=== PATIENT | male | born 1980 | race Caucasian/White ===

== ENCOUNTER 2021-08-04 09:03 | Emergency (ER) | payer OTHER ==
[~2021-08-04] VITALS: Ht 177.8 cm; Wt 78.8 kg
== END 2021-08-04 10:44 | disposition home or self-care (01) ==
LOC: ED 09:03
DX: K92.2 Gastrointestinal hemorrhage, unspecified (principal); K29.00 Acute gastritis without bleeding
CPT/HCPCS: 36415; 80053; 85025; 96374; 99283-25; J7030

== ENCOUNTER 2024-03-04 19:20 | Emergency (ER) | payer OTHER ==
[~2024-03-04] VITALS: Ht 177.8 cm; Wt 82.0 kg
[2024-03-04 20:01] LABS: BASOPHILS 0.7 % (0-2); EOSINOPHILS 1.4 % (0-6); HEMATOCRIT 30.1 % (35.0-50.0); HEMOGLOBIN 9.7 g/dL (12.0-18.0); LYMPHOCYTES 17.3 % (24-44); MCHC 32.4 g/dl (30-36); MCV 86.4 fl (81-99); MONOCYTES 10.2 % (0-12); NEUTROPHILS 70.4 % (39-80); PLATELET COUNT 412 K/uL (140-440); RBC 3.48 M/ul (4.3-5.7)
[2024-03-04 20:15] LABS: ALBUMIN 2.6 g/dL (3.4-5.0); ALBUMIN/GLOBULIN RATIO 0.51 (1.1-2.4); ANION GAP 12.2 (7-21); BILIRUBIN, TOTAL 0.5 ng/dL (0.2-1.0); BUN/CREATININE RATIO 15.78 (6.0-28.6); CREATININE, SERUM 0.95 mg/dL (0.70-1.30); POTASSIUM 4.2 mmol/L (3.5-5.1); PROTEIN, TOTAL 7.7 g/dL (6.4-8.2)
[2024-03-04] MEDS ORDERED: LACTATED RINGER'S 1,000 ML IV ONE (20:15)
[2024-03-04 20:30] LABS: ACETAMINOPHEN 0 ug/mL (10-30); SALICYLATE 0.6 mg/dL (2.8-20.0)
[2024-03-04] MEDS ORDERED: HYDROCODONE BIT/ACETAMINOPHEN 5/325 MG 1 TAB HOME.PACK PO ONE (21:00)
[2024-03-04] MEDS ORDERED: HYDROCODON-ACE1 EA10 PO (21:05)
[2024-03-04 21:54] LABS: BILIRUBIN, URINE NEGATIVE (negative); BLOOD/HGB, URINE NEGATIVE (Negative); KETONE, URINE NEGATIVE (Negative); LEUK ESTERASE, URINE NEGATIVE (negative); NITRITE, URINE NEGATIVE (negative)
[2024-03-04 22:05] VITALS: BP 129/82
[2024-03-04 22:08] LABS: AMPHETAMINES, URINE POSITIVE (NEGATIVE); BARBITURATES, URINE NEGATIVE (NEGATIVE); BENZODIAZEPINE, URINE NEGATIVE (NEGATIVE); BUPRENORPHINE, URINE NEGATIVE (NEGATIVE); CANNABINOID, URINE NEGATIVE (NEGATIVE); COCAINE, URINE NEGATIVE (NEGATIVE); ECSTASY, URINE NEGATIVE (NEGATIVE); FENTANYL, URINE NEGATIVE (NEGATIVE); METHADONE, URINE NEGATIVE (NEGATIVE); OPIATES, URINE NEGATIVE (NEGATIVE); OXYCODONE, URINE NEGATIVE (NEGATIVE); PHENCYCLIDINE, URINE NEGATIVE (NEGATIVE)
== END 2024-03-04 22:05 | disposition home or self-care (01) ==
LOC: ED 19:20
PROVIDERS: Internal Medicine
DX: R22.41 Localized swelling, mass and lump, right lower limb (principal); I10 Essential (primary) hypertension
CPT/HCPCS: 36415; 73702; 73706; 80053; 80307; 81003; 85025; 85379; 93971; 99284-25; A9270; G0480; J7121; Q9967

== ENCOUNTER 2024-05-20 13:05 | Emergency (ER) | payer OTHER ==
[~2024-05-20] VITALS: Ht 177.8 cm; Wt 77.3 kg
[~2024-05-20 13:05] MED LIST: HYDROCODON-ACE1 EA10 PO
[2024-05-20] MEDS ORDERED: HYDROmorphone HCL 1 MG/ML SYR IM ONE (16:00)
[2024-05-20 16:28] LABS: ANION GAP 16.3 (7-21); BUN/CREATININE RATIO 20.68 (6.0-28.6); CALCIUM 8.8 mg/dL (8.5-10.1); CREATININE, SERUM 1.16 mg/dL (0.70-1.30); POTASSIUM 4.3 mmol/L (3.5-5.1)
[2024-05-20] MEDS ORDERED: ACETAMINOPHEN 500 MG TAB PO ONE (16:30)
[2024-05-20] MEDS ORDERED: HYDROCODON-ACE1 EA10 PO (17:48)
[2024-05-20 18:10] VITALS: BP 127/64
== END 2024-05-20 17:54 | disposition home or self-care (01) ==
LOC: ED 13:05
PROVIDERS: Emergency Medicine
DX: C76.51 Malignant neoplasm of right lower limb (principal); I10 Essential (primary) hypertension; Z79.899 Other long term (current) drug therapy
CPT/HCPCS: 36415; 80048; 82553; 96372; 99283-25; A9270; J1171

== ENCOUNTER 2024-08-04 19:54 | Emergency (ER) | payer OTHER ==
[~2024-08-04] VITALS: Ht 177.8 cm; Wt 83.5 kg
[2024-08-04] MEDS ORDERED: ACETAMINOPHEN 500 MG TAB ONE (20:14)
[2024-08-04] MEDS ORDERED: SODIUM CHLORIDE 0.9% 1,000 ML IV ONE (20:15)
[2024-08-04] MEDS ORDERED: DAPTOmycin 500 MG/10 ML VIAL IV ONE (20:15)
[2024-08-04] MEDS ORDERED: ACETAMINOPHEN 500 MG TAB PO ONE (20:15)
[2024-08-04] MEDS ORDERED: IBUPROFEN 800 MG TAB PO ONE (20:15)
[2024-08-04 20:22] LABS: BASOPHILS 0.5 % (0-2); EOSINOPHILS 0.2 % (0-6); HEMATOCRIT 17.8 % (35.0-50.0); LYMPHOCYTES 17.8 % (24-44); MCHC 32.2 g/dl (30-36); MCV 77.8 fl (81-99); MONOCYTES 13.3 % (0-12); NEUTROPHILS 68.2 % (39-80); PLATELET COUNT 558 K/uL (140-440); RBC 2.29 M/ul (4.3-5.7); RDW 20.7 (10.5-15.0)
[2024-08-04 20:24] LABS: HEMOGLOBIN 5.7 g/dL (12.0-18.0); PARTIAL THROMBOPLASTIN TIME 39.6 Sec (22.9-41.3)
[2024-08-04 20:25] LABS: INR 1.18 (0.80-1.30); PROTIME 14.9 Sec (11.2-14.2)
[2024-08-04 20:26] LABS: BILIRUBIN, URINE NEGATIVE (negative); BLOOD/HGB, URINE NEGATIVE (Negative); KETONE, URINE NEGATIVE (Negative); LEUK ESTERASE, URINE NEGATIVE (negative); NITRITE, URINE NEGATIVE (negative); PH, URINE 5.5 (5-7)
[2024-08-04 20:29] LABS: ALBUMIN 1.8 g/dL (3.4-5.0); ALBUMIN/GLOBULIN RATIO 0.38 (1.1-2.4); BILIRUBIN, TOTAL 0.4 mg/dL (0.2-1.0); BUN/CREATININE RATIO 11.82 (6.0-28.6); CREATININE, SERUM 0.93 mg/dL (0.70-1.30); PROTEIN, TOTAL 6.6 g/dL (6.4-8.2)
[2024-08-04 20:31] LABS: EPITHELIAL CELLS, URINE SQUAMOUS 1+ /lpf (0-1+)
[2024-08-04 20:32] LABS: BACTERIA, URINE 1+ /hpf (negative); CASTS, URINE NONE SEEN \\lpf; COLLECTION TYPE, URINE CLEAN CATCH; CRYSTALS, URINE NONE SEEN (0-1+); RED BLOOD CELLS, URINE 0-1 /hpf (0-5); REFLEX CULTURE, URINE No (No); WHITE BLOOD CELLS, URINE 0-1 /HPF (0-5)
[2024-08-04 20:35] LABS: BANDS, MANUAL DIFF 1; LACTIC ACID, BLOOD 1.9 mmol/L (0.4-2.0); LYMPHOCYTES, MANUAL DIFF 25; MONOCYTES, MANUAL DIFF 6; NEUTROPHILS, MANUAL DIFF 68
[2024-08-04 20:51] LABS: ABO A; RH POSITIVE
[2024-08-04 20:58] LABS: AMPHETAMINES, URINE POSITIVE (NEGATIVE); BARBITURATES, URINE NEGATIVE (NEGATIVE); BENZODIAZEPINE, URINE NEGATIVE (NEGATIVE); BUPRENORPHINE, URINE NEGATIVE (NEGATIVE); CANNABINOID, URINE NEGATIVE (NEGATIVE); COCAINE, URINE NEGATIVE (NEGATIVE); ECSTASY, URINE NEGATIVE (NEGATIVE); FENTANYL, URINE NEGATIVE (NEGATIVE); METHADONE, URINE NEGATIVE (NEGATIVE); OPIATES, URINE NEGATIVE (NEGATIVE); OXYCODONE, URINE NEGATIVE (NEGATIVE); PHENCYCLIDINE, URINE NEGATIVE (NEGATIVE)
[2024-08-04 20:59] LABS: INFLUENZA B NAA NEGATIVE (NEGATIVE); RESPIRATORY SYNCYTIAL VIR NAA NEGATIVE (NEGATIVE)
[2024-08-04 21:28] LABS: ABO A; ANTIBODY SCREEN NEGATIVE; IS CROSSMATCH COMPATIBLE; RH POSITIVE
[2024-08-04] MEDS ORDERED: methylPREDNISolone SOD SUCC 125 MG/2 ML VIAL IV ONE (21:30)
[2024-08-04] MEDS ORDERED: HYDROmorphone HCL 1 MG/ML SYR IV PRN (21:30)
[2024-08-04] MEDS ORDERED: CIPROFLOXACIN 0.3% 5 ML HOME.PACK OPTH ONE (22:15)
[2024-08-04] MEDS ORDERED: PERCOCET 5-3251 EACH PO (22:25)
[2024-08-04] MEDS ORDERED: AMOX TR-K CLV1 EAC1 PO (22:25)
[2024-08-04] MEDS ORDERED: FERROUS SULFAT325 M2 PO (22:25)
[2024-08-04] MEDS ORDERED: VITAMIN C500 M1 PO (22:25)
[2024-08-05] MEDS ORDERED: diphenhydrAMINE HCL 50 MG/ML VIAL IV ONE ×2 (00:45→02:00)
[2024-08-05] MEDS ORDERED: methylPREDNISolone 4 MG HOME.PACK PO ONE (01:00)
[2024-08-05 03:40] LABS: BASOPHILS 0.6 % (0-2); EOSINOPHILS 0.2 % (0-6); HEMATOCRIT 21.6 % (35.0-50.0); HEMOGLOBIN 6.8 g/dL (12.0-18.0); MCH 25.3 (27-36); MCHC 31.6 g/dl (30-36); MCV 79.9 fl (81-99); MONOCYTES 5.3 % (0-12); NEUTROPHILS 84.9 % (39-80); PLATELET COUNT 453 K/uL (140-440); RDW 20.8 (10.5-15.0)
[2024-08-05 03:51] LABS: INR 1.29 (0.80-1.30)
[2024-08-05 03:53] LABS: SMEAR REVIEW BLOOD SEE COMMENTS
[2024-08-05 08:10] VITALS: BP 106/61
--- NOTE | 2024-08-05 17:41 | EKG ---
[facility] [address] [facility] [place], [place] [address] Signed Sinus tachycardia Otherwise normal ECG No previous ECGs available Confirmed by Evelyn Ramachandran MD ([id number]) on 08/05/2024 5:41:24 PM Electronically Signed By: EVEYLN RAMACHANDRAN MD 08/05/241740 PATIENT NAME: DAREN COLIN Electrocardiogram DATE OF : 78 PHYSICIAN: EVELYN RAMACHANDRAN MD REPORT #: [id number] REPORT IS CONFIDENTIAL AND NOT TO BE RELEASED WITHOUT AUTHORIZATION
--- NOTE | 2024-08-05 17:44 | EKG ---
[facility] [address] [facility] [place] [address] Signed Normal sinus rhythm Prolonged QT Abnormal ECG When compared with ECG of 04-AUG-2024 20:05, (Unconfirmed) Vent. rate has decreased BY 64 BPM Confirmed by Evelyn Ramachandran MD ([id number]) on 08/05/2024 5:43:50 PM Electronically Signed By: EVELYN RAMACHANDRAN MD 08/05/24 1744 PATIENT NAME: DAREN COLIN Electrocardiogram DATE OF : 78 PHYSICIAN: EVELYN RAMACHANDRAN MD REPORT #: [id number] REPORT IS CONFIDENTIAL AND NOT TO BE RELEASED WITHOUT AUTHORIZATION
== END 2024-08-05 08:10 | disposition home or self-care (01) ==
LOC: ED 19:54
PROVIDERS: Family Medicine
DX: L04.1 Acute lymphadenitis of trunk (principal); D63.8 Anemia in other chronic diseases classified elsewhere; C49.21 Malignant neoplasm of connective and soft tissue of right lower limb, including hip; N39.0 Urinary tract infection, site not specified; I10 Essential (primary) hypertension; Z79.899 Other long term (current) drug therapy
CPT/HCPCS: 36415; 36430; 51702; 71045; 74177; 80053; 80307; 81001; 83605; 84443; 85007; 85025; 85045; 85060; 85610; 85730; 86850; 86900; 86901; 86922; 87040; 87502; 93005; 93010; 99284-25; A9270; J0878; J1200; J2919; J7030; P9016; Q9967; U0002

== ENCOUNTER 2024-09-16 14:16 | Emergency (ER) | payer OTHER ==
[~2024-09-16] VITALS: Ht 177.8 cm; Wt 79.8 kg
[~2024-09-16 14:16] MED LIST changes: +AMOX TR-K CLV1 EAC1 PO; +FERROUS SULFAT325 M2 PO; +PERCOCET 5-3251 EACH PO; +VITAMIN C500 M1 PO
[2024-09-16 15:55] LABS: BASOPHILS 0.8 % (0-2); EOSINOPHILS 1.6 % (0-6); HEMOGLOBIN 8.1 g/dL (12.0-18.0); LYMPHOCYTES 15.5 % (24-44); MCHC 32.3 g/dl (30-36); MCV 80.5 fl (81-99); MONOCYTES 10.8 % (0-12); NEUTROPHILS 71.3 % (39-80); PLATELET COUNT 560 K/uL (140-440); RBC 3.11 M/ul (4.3-5.7); RDW 20.8 (10.5-15.0)
[2024-09-16] MEDS ORDERED: SODIUM CHLORIDE 0.9% 500 ML IV PRN (16:00)
[2024-09-16] MEDS ORDERED: METHYLPREDNISOLO4 M1 PO (16:03)
[2024-09-16 16:05] LABS: PARTIAL THROMBOPLASTIN TIME 30.9 Sec (22.9-41.3)
[2024-09-16 16:06] LABS: INR 1.11 (0.80-1.30); PROTIME 13.7 Sec (11.2-14.2)
[2024-09-16 16:14] LABS: ALBUMIN/GLOBULIN RATIO 0.42 (1.1-2.4); ANION GAP 11.3 (7-21); BILIRUBIN, TOTAL 0.2 mg/dL (0.2-1.0); BUN/CREATININE RATIO 19.4 (6.0-28.6); CALCIUM 8.6 mg/dL (8.5-10.1); CREATININE, SERUM 0.67 mg/dL (0.70-1.30); POTASSIUM 4.3 mmol/L (3.5-5.1); PROTEIN, TOTAL 6.8 g/dL (6.4-8.2)
[2024-09-16 16:30] LABS: ABO A; ANTIBODY SCREEN NEGATIVE; RH POSITIVE
[2024-09-16 17:19] LABS: AMPHETAMINES, URINE POSITIVE (NEGATIVE); BARBITURATES, URINE NEGATIVE (NEGATIVE); BENZODIAZEPINE, URINE NEGATIVE (NEGATIVE); BUPRENORPHINE, URINE NEGATIVE (NEGATIVE); CANNABINOID, URINE POSITIVE (NEGATIVE); COCAINE, URINE NEGATIVE (NEGATIVE); ECSTASY, URINE NEGATIVE (NEGATIVE); FENTANYL, URINE NEGATIVE (NEGATIVE); METHADONE, URINE NEGATIVE (NEGATIVE); OPIATES, URINE NEGATIVE (NEGATIVE); OXYCODONE, URINE POSITIVE (NEGATIVE); PHENCYCLIDINE, URINE NEGATIVE (NEGATIVE)
[2024-09-16] MEDS ORDERED: SODIUM CHLORIDE 0.9% 1,000 ML IV PRN (17:30)
[2024-09-16 19:14] VITALS: BP 127/67
== END 2024-09-16 19:15 | disposition home or self-care (01) ==
LOC: ED 14:16
PROVIDERS: Emergency Medicine
DX: D64.9 Anemia, unspecified (principal); C76.51 Malignant neoplasm of right lower limb; I10 Essential (primary) hypertension; Z79.52 Long term (current) use of systemic steroids
CPT/HCPCS: 36415; 80053; 80307; 83605; 84443; 85025; 85610; 85730; 86850; 86900; 86901; 99283; J7040

== ENCOUNTER 2024-10-25 15:15 | Emergency (ER) | payer OTHER ==
[~2024-10-25] VITALS: Ht 177.8 cm; Wt 72.5 kg
[~2024-10-25 15:15] MED LIST changes: +METHYLPREDNISOLO4 M1 PO
[2024-10-25 17:29] LABS: BASOPHILS 1.1 % (0-2); EOSINOPHILS 3.8 % (0-6); HEMATOCRIT 35.2 % (35.0-50.0); LYMPHOCYTES 33.9 % (24-44); MCHC 34.2 g/dl (30-36); MCV 87.8 fl (81-99); MONOCYTES 7.7 % (0-12); NEUTROPHILS 53.5 % (39-80); PLATELET COUNT 281 K/uL (140-440); RBC 4.01 M/ul (4.3-5.7); RDW 17.4 (10.5-15.0)
[2024-10-25 17:40] LABS: ALBUMIN 3.3 g/dL (3.4-5.0); ALBUMIN/GLOBULIN RATIO 0.75 (1.1-2.4); ANION GAP 8.2 (7-21); BILIRUBIN, TOTAL 0.3 mg/dL (0.2-1.0); BUN/CREATININE RATIO 15.66 (6.0-28.6); CALCIUM 9.1 mg/dL (8.5-10.1); CREATININE, SERUM 0.83 mg/dL (0.70-1.30); POTASSIUM 4.2 mmol/L (3.5-5.1); PROTEIN, TOTAL 7.7 g/dL (6.4-8.2)
[2024-10-25] MEDS ORDERED: TRIMETHOPRIM/SULFAMETHOXAZOLE 1 EA TAB PO ONE (18:00)
[2024-10-25] MEDS ORDERED: CEPHALEXIN MONOHYDRATE 500 MG CAP PO ONE (18:00)
[2024-10-25] MEDS ORDERED: BACTRIM DS TAB1 EACH PO (18:04)
[2024-10-25] MEDS ORDERED: CEPHALEXIN500 M1 PO (18:04)
[2024-10-25 18:16] VITALS: BP 138/122
== END 2024-10-25 18:17 | disposition home or self-care (01) ==
LOC: ED 15:15
PROVIDERS: Emergency Medicine
DX: S71.101A Unspecified open wound, right thigh, initial encounter (principal); I10 Essential (primary) hypertension; X58.XXXA Exposure to other specified factors, initial encounter
CPT/HCPCS: 36415; 80053; 85025; 99284; A9270

== ENCOUNTER 2025-05-21 06:06 | Emergency (ER) | payer OTHER ==
[~2025-05-21] VITALS: Ht 177.8 cm; Wt 72.5 kg
[~2025-05-21 06:06] MED LIST changes: +BACTRIM DS TAB1 EACH PO; +CEPHALEXIN500 M1 PO
[2025-05-21] MEDS ORDERED: AMOXICILLIN500 MG PO (06:21)
[2025-05-21] MEDS ORDERED: TRAMADOL HCL50 MG PO (06:21)
[2025-05-21] MEDS ORDERED: PIPERACILLIN/TAZOBACTAM 4.5 GM in SODIUM CHLORIDE 0.9% 100 ML IV ONE (07:00)
[2025-05-21] MEDS ORDERED: DAPTOmycin 500 MG/10 ML VIAL IV ONE (07:00)
[2025-05-21 07:36] LABS: ALT (SGPT) 40.0 U/L (14-59); AST (SGOT) 25.0 U/L (15-37); GLOMERULAR FILTRATION RATE,EST 110.0 mL/min (>60); PROTEIN, TOTAL 7.9 g/dL (6.4-8.2); UREA NITROGEN 11.0 mg/dL (7-18)
[2025-05-21 07:39] LABS: BASOPHILS 0.3 % (0.2-1.2); EOSINOPHILS 0.3 % (0.8-7.0); LYMPHOCYTES 14.0 % (21.8-53.1); MCH 29.4 PG (25.7-32.2); MCHC 32.9 g/dL (32.3-36.5); MCV 89.5 fL (79.0-92.2); MONOCYTES 9.8 % (5.3-12.2); NEUTROPHILS 75.0 % (34.0-67.9); RBC 3.33 M/uL (4.63-6.08)
[2025-05-21 08:44] LABS: LACTIC ACID, BLOOD 0.5 mmol/L (0.4-2.0)
[2025-05-21] MEDS ORDERED: ELIQUIS5 MG PO (09:48)
[2025-05-21 10:20] VITALS: BP 126/95
== END 2025-05-21 10:20 | disposition home or self-care (01) ==
LOC: ED 06:06
PROVIDERS: Internal Medicine
DX: I82.411 Acute embolism and thrombosis of right femoral vein (principal); L03.115 Cellulitis of right lower limb; Z86.018 Personal history of other benign neoplasm; I10 Essential (primary) hypertension
CPT/HCPCS: 36415; 80053; 83605; 85025; 85379; 87040; 96365; 96375; 99284-25; J0878; J2543